=== PATIENT | male | born 1985 ===

== ENCOUNTER 2023-08-10 07:33 | Emergency (ER) | payer OTHER | END 2023-08-10 09:04 | disposition home or self-care (01) | LOC: MW.ED 07:33 | DX: S93.402A Sprain of unspecified ligament of left ankle, initial encounter (principal); Z75.8 Other problems related to medical facilities and other health care; X50.0XXA Overexertion from strenuous movement or load, initial encounter | CPT/HCPCS: 73610-26-LT; 73610-LT; 99283 ==